=== PATIENT | male | born 1970 | race Caucasian/White ===

== ENCOUNTER 2024-12-28 10:30 | Day surgery (SDC) | payer OTHER, MEDICAID, SELFPAY ==
--- NOTE | 2024-12-25 10:18 | EKG_ITS ---
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
[2024-12-25 11:14] LABS: INR 0.9 (0.9-1.3); Partial Thromboplastin Time 28.9 Seconds (22.0-36.0); Prothrombin Time 10.3 Seconds (9.0-12.2)
[2024-12-25 11:17] LABS: Alanine Aminotransferase 14 U/L (10-49); Albumin, Serum 4.4 gm/dL (3.5-5.0); Albumin/Globulin Ratio 2.3 (1.2-2.2); Alkaline Phosphatase 84 U/L (46-116); Anion Gap 4 (7-16); Aspartate Amino Transferase 16 U/L (0-34); BUN/Creatinine Ratio 14 Ratio (12-20); Bilirubin,Total 0.4 mg/dL (0.3-1.2); Blood Urea Nitrogen 17 mg/dL (9-23); Calcium 9.5 mg/dL (8.3-10.6); Calcium (Corrected) 9.5 mg/dL (8.5-10.1); Carbon Dioxide 25.6 mMol/L (20.0-31.0); Chloride 111 mMol/L (98-107); Creatinine (Component) 1.2 mg/dL (0.6-1.3); Globulin 1.9 gm/dL (2.3-3.5); Glucose 101 mg/dL (74-106); Osmolality,Calculated 282 (275-295); Potassium 4.4 mMol/L (3.4-5.1); Sodium 141 mMol/L (136-145); Total Protein 6.3 gm/dL (5.7-8.2); eGFR > 60 See Note
[2024-12-28 11:02] VITALS: BP 122/73; PULSE 69; PULSE 70; RESP 17; TEMP 36.7; O2SAT 99
[2024-12-28 11:14] VITALS: BMI 22.3
[2024-12-28] MEDS: RINGERS LACTATED 1000 ML 1,000 ML 20 ML IV (13:01)
--- NOTE | 2024-12-28 13:05 | SUR.OPER ---
PATIENT IN ROOM, AT BEDSIDE SPEAKING WITH PATIENT. PATIENT REMINDS THAT HE DOES NOT WANT ANY BIOPSIES DONE, HOWEVER STATES HE CAN REMOVE POLYPS IF HE FINDS ANY. EXPLAINS THE RISKS OF NOT PERFORMING BIOPSIES IF HE SEES NECESSARY. PATIENT VERBALIZES UNDERSTANDING AND CONTINUES TO WISH TO PROCEED WITH PROCEDURE WITH NO BIOPSIES.
[2024-12-28 13:26] VITALS: BP 112/77; PULSE 73; RESP 10; TEMP 36.6; O2SAT 97
[2024-12-28 13:36] VITALS: BP 110/71; PULSE 68; RESP 14; O2SAT 98
[2024-12-28 13:45] VITALS: BP 128/79; PULSE 67; RESP 20; O2SAT 98
== END 2024-12-28 13:50 | disposition home or self-care (01) ==
PROVIDERS: PCP Family Medicine; Referring Provider Specialist; Visit Provider Specialist
PROC: 0DJD8ZZ Inspection of Lower Intestinal Tract, Via Natural or Artificial Opening Endoscopic (ICD-10-PCS; CPT 45378; principal; 2024-12-28 11:15)
DX: Z12.11 Encounter for screening for malignant neoplasm of colon (principal); K64.1 Second degree hemorrhoids; K57.30 Diverticulosis of large intestine without perforation or abscess without bleeding; Z86.0101 Personal history of adenomatous and serrated colon polyps; E78.5 Hyperlipidemia, unspecified; F41.1 Generalized anxiety disorder; E03.9 Hypothyroidism, unspecified; Z79.899 Other long term (current) drug therapy; Z79.890 Hormone replacement therapy
CPT/HCPCS: G0105; 36415; 80053; 85610; 85730; 93005; A4649; J7120